=== PATIENT | male | born 1990 ===

== ENCOUNTER 2018-06-25 04:38 | Emergency (ER) | payer BC ==
[2018-06-25] MEDS ORDERED: Lidocaine 2% MPF* 2 ML VIAL ONE (05:13)
--- NOTE | 2018-06-25 05:14 | ED ---
Upper Extremity Pain - HPI Summary HPI Summary: This patient is a 27 year old M presenting to [facility] accompanied by a woman with a chief complaint of right hand injury with bleeding since just [employer]. The patient rates the pain 7/10 in severity. He states he was taking down a piece of gutter on his house and accidentally sliced his hand. - History of Current Complaint Chief Complaint: EDLacSutureRecheck Stated Complaint: CUT HAND OPEN- PER PT Time Seen by Provider: 06/25/18 05:08 Hx Obtained From: Patient Onset/Duration: Started Minutes Ago Severity Currently: Moderate - 7/10 Pain Location: Hand - right - Allergies/Home Medications Allergies/Adverse Reactions: Allergies Allergy/AdvReac Type Severity Reaction Status Date / Time No Known Allergies Allergy Verified 06/25/18 04:56 PMH/Surg Hx/FS Hx/Imm Hx Endocrine/Hematology History: Denies: Hx Diabetes, Hx Thyroid Disease Cardiovascular History: Denies: Hx Congestive Heart Failure, Hx Deep Vein Thrombosis, Hx Hypertension , Hx Myocardial Infarction, Hx Pacemaker/ICD Respiratory History: Reports: Hx Asthma - INFANT & YOUNG CHILD, NO MEDS SINCE 2004 Denies: Hx Chronic Obstructive Pulmonary Disease (COPD), Hx Lung Cancer, Hx Pneumonia, Hx Pulmonary Embolism GI History: Denies: Hx Gall Bladder Disease, Hx Gastrointestinal Bleed, Hx Ulcer, Hx Urosepsis History: Denies: Hx Kidney Stones, Hx Renal Disease Sensory History: Reports: Hx Contacts or Glasses - CONTACTS; WILL WEAR GLASSES DAY OF SURGERY Opthamlomology History: Reports: Hx Contacts or Glasses - CONTACTS; WILL WEAR GLASSES DAY OF SURGERY Neurological History: Denies: Hx Dementia, Hx Migraine, Hx Seizures, Hx Transient Ischemic Attacks (TIA) Psychiatric History: Denies: Hx Anxiety, Hx Depression, Hx Schizophrenia, Hx Bipolar Disorder - Surgical History Surgery Procedure, Year, and Place: Right hand surgery Hx Anesthesia Reactions: No Infectious Disease History: No Infectious Disease History: Denies: History Other Infectious Disease, Traveled Outside the [place] in Last 30 Days - Family History Known Family History: Negative: Renal Disease, Blood Disorder - Social History Alcohol Use: Occasionally Substance Use Type: Reports: None Smoking Status (MU): Never Smoked Tobacco Review of Systems Negative: Fever Positive: Myalgia - right hand All Other Systems Reviewed And Are Negative: Yes Physical Exam - Summary Physical Exam Summary: VITAL SIGNS: Reviewed. GENERAL: Patient is a well-developed and nourished male who is lying comfortable in the stretcher. Patient is not in any acute respiratory distress. HEAD AND FACE: No signs of trauma. No ecchymosis, hematomas or skull depressions. No sinus tenderness. EYES: PERRLA, EOMI x 2, No injected conjunctiva, no nystagmus. EARS: Hearing grossly intact. Ear canals and tympanic membranes are within normal limits. MOUTH: Oropharynx within normal limits. NECK: Supple, trachea is midline, no adenopathy, no JVD, no carotid bruit, no c- spine tenderness, neck with full ROM. CHEST: Symmetric, no tenderness at palpation LUNGS: Clear to auscultation bilaterally. No wheezing or crackles. CVS: Regular rate and rhythm, S1 and S2 present, no murmurs or gallops appreciated. ABDOMEN: Soft, non-tender. No signs of distention. No rebound no guarding, and no masses palpated. Bowel sounds are normal. EXTREMITIES: FROM in all major joints, no edema, no cyanosis or clubbing. 7cm laceration on the palm of the right hand. NEURO: Alert and oriented x 3. No acute neurological deficits. Speech is normal and follows commands. SKIN: Dry and warm Triage Information Reviewed: Yes Vital Signs On Initial Exam: Initial Vitals Temp Pulse Resp BP Pulse Ox 98.2 F 82 16 118/51 97 06/25/18 04:54 06/25/18 04:54 06/25/18 04:54 06/25/18 04:54 06/25/18 04:54 Vital Signs Reviewed: Yes Procedures - Laceration/Wound Repair 1 Location: upper extremity - right hand Anesthesia: 2.0%, Lido Length, Depth and Shape: 7cm Suture Type: Prolene - 2-0 Number of Sutures: 7 Diagnostics - Vital Signs Vital Signs Temp Pulse Resp BP Pulse Ox 06/25/18 04:54 98.2 F 82 16 118/51 97 - Laboratory Lab Statement: Any lab studies that have been ordered have been reviewed, and results considered in the medical decision making process. Course/Dx - Course Course Of Treatment: This patient is a 27 year old M presenting to [facility] accompanied by a woman with a chief complaint of right hand injury with bleeding since just [employer]. The patient rates the pain 7/10 in severity. He states he was taking down a piece of gutter on his house and accidentally sliced his hand. The laceration was repaired with 7 stitches, which should be removed in 10-14 days. In the ED course the patient was given Cephalexin, Ibuprofen, Oxycodone, and Tetan. Patient will be discharged with prescription for Cephalexin and Ibuprofen and follow up from Dr. Zhu. The patient is agreeable with this plan. - Diagnoses Provider Diagnoses: Laceration Discharge - Sign-Out/Discharge Documenting (check all that apply): Patient Departure - discharge Patient Received Moderate/Deep Sedation with Procedure: No - Discharge Plan Condition: Stable Disposition: HOME Prescriptions: Cephalexin CAP* [Keflex CAP*] 500 mg PO QID #30 cap Ibuprofen TAB* [Motrin TAB* 800 MG] 800 mg PO Q6H PRN #30 tab PRN Reason: Pain Patient Education Materials: Laceration (ED) Forms: *Work Release Referrals: Blair Zhu MD [Primary Care Provider] - 2 Days Additional Instructions: RETURN TO THE EMERGENCY DEPARTMENT FOR CHANGING OR WORSENING SYMPTOMS. FOLLOW UP WITH Dr. Zhu IN 1-2 DAYS, if needed. Remove stitches in 10-14 days. - Attestation Statements Document Initiated by Scribe: Yes Documenting Scribe: Basim Oleary Provider For Whom Scribe is Documenting (Include Credential): Latoya Velasquez MD Scribe Attestation: Basim Santana, scribed for Latoya Velasquez MD on 06/25/18 at 0619. Status of Scribe Document: Ready
[2018-06-25] MEDS ORDERED: oxyCODONE/Acetamin 5/325 MG* TAB PO ONE (05:31)
[2018-06-25] MEDS ORDERED: Cephalexin CAP* 500 MG PO ONE (05:31)
[2018-06-25] MEDS ORDERED: Tetan/Diph/Pertus SYR(Tdap)* 0.5 ML SYR(BOOSTRIX) use SYR IM ONE (05:31)
[2018-06-25] MEDS ORDERED: Ibuprofen TAB* 400 MG PO ONE (05:31)
[2018-06-25 06:00] VITALS: BP 119/64
== END 2018-06-25 06:00 | disposition home or self-care (01) ==
LOC: ED 04:38
DX: S61.411A Laceration without foreign body of right hand, initial encounter (principal); W45.8XXA Other foreign body or object entering through skin, initial encounter; Y93.89 Activity, other specified; Y92.009 Unspecified place in unspecified non-institutional (private) residence as the place of occurrence of the external cause
CPT/HCPCS: 12002; 90715; 99282; A9270-GY

== ENCOUNTER 2018-07-13 11:34 | Day surgery (SDC) | payer BC ==
[~2018-07-13 11:34] MED LIST: Buffered Lidocaine 1% SYRIN* 1 ML/SYRINGE INTRADERM ONE; Dexamethasone IV* 4 MG/ML 1 ML (4 MG) IV SLOW PU ONE; Dexamethasone IV* 4 MG/ML 1 ML (4 MG) ONE; Famotidine IV* 10 MG/ML 2 ML (20 mg) IV ONE; Famotidine IV* 10 MG/ML 2 ML (20 mg) ONE; Lactated Ringers 1000 ML Bag* 1,000 ML IV SCH
[2018-07-13] MEDS ORDERED: ceFAZolin 2 GM in NS PREMIX(*) 2 GM/100 ML BAG IVPB ONE (11:39)
[2018-07-13] MEDS ORDERED: Bupivacaine 0.25% SDV* 30 ML ONE (14:51)
[2018-07-13] MEDS ORDERED: Midazolam* 1 MG/ML 5 ML VIAL (5 MG) ONE (16:04)
[2018-07-13] MEDS ORDERED: Propofol* 10 MG/ML 20 ML BTL ONE (16:04)
[2018-07-13] MEDS ORDERED: fentaNYL* 50 MCG/ML 2 ML VIAL (100 MCG VIAL) ONE (16:04)
[2018-07-13] MEDS ORDERED: fentaNYL* 50 MCG/ML 2 ML VIAL (100 MCG VIAL) IV PRN (17:05)
[2018-07-13] MEDS ORDERED: Ondansetron INJ* 2 MG/ML VIAL IV PRN (17:05)
[2018-07-13] MEDS ORDERED: Naloxone* 0.4 MG/ML 1 ML VIAL IV PRN (17:05)
[2018-07-13] MEDS ORDERED: oxyCODONE/Acetamin 5/325 MG* TAB PO PRN (17:05)
[2018-07-13 17:48] VITALS: BP 134/79
[2018-07-13] MEDS ORDERED: oxyCODONE/Acetamin 5/325 MG* TAB ONE (17:58)
--- NOTE | 2018-07-14 01:06 | OP ---
DATE OF OPERATION: 07/13/18 - [facility] DATE OF : 89 SURGEON: Cody Kay MD. RETURNER: DIDIER Romo. An assistant professor of biology was needed for the procedure to aid in positioning of the arm and retraction. ANESTHESIOLOGIST: Dr. Silveira. ANESTHESIA: General. PRE-OP DIAGNOSIS: Right index finger radial digital nerve laceration. POST-OP DIAGNOSIS: Right index finger radial digital nerve injury in continuity over about 2 to 3 mm. OPERATIVE PROCEDURE: Repair of right index finger radial digital nerve with Axoguard Nerve Connector. INDICATIONS: Herberth is 27 years old. He had sheet metal lacerate the radial aspect of the palm. He has dry scaly skin on the radial aspect of his finger, and sparely diminished sensation on the radial aspect of the finger. The remainder of the hand was fine until that we had to explore the nerve and make sure that digital nerve was okay. ESTIMATED BLOOD LOSS: 2 mL. COMPLICATIONS: None. FINDINGS: See above and below. DESCRIPTION OF PROCEDURE: Herberth was seen in the preoperative holding area. The correct site, side and procedure were identified. We came back to the operating room where the arm was prepped and draped in the usual fashion and time-out was performed. The hand was placed in Lead Hand and his prior sutures had all been removed. We did have tourniquet up to 250 and I went ahead and reopened the prior incision bluntly. When I reopened the prior traumatic wound, I did encounter some Vicryl sutures and these were all removed. I extended this distally down over the MCP joint area of the index finger. Full-thickness flap was raised off the tendon. The radial digital nerve was identified distally where there was no scar tissue and then I traced the nerve proximally. When I got to the level of the midpalm where he had a strongly positive Tinel's, I noted that he had a 2 to 3 mm segment where the nerve was red and severely contused and clearly had sustained the nerve injury at that level, proximal to that the nerve looked fine. The digital artery was not lacerated. The tendon was not lacerated. I performed a full neurolysis circumferentially around the damaged area of the nerve. I elected not to excise that area and go for a primary repair instead. I thought that there was a chance that it could still be a connection block or if it is an axonotmetic injury that it could still heal, and so I went ahead and I placed an Axoguard Nerve Connector 4 mm x 15 mm connector that I split longitudinally around the area and then I sutured this with 8-[address]. After I had applied the nerve connector, I irrigated out the wound, I inspected the tendons, they were fine. I debrided the damaged skin edges back to nice clean skin edges throughout the 3 to 4 cm traumatic wound. The traumatic wound was closed with 4-0 nylon suture as was the surgical incision portion of the wound. No deep sutures were placed. The wound was dressed with Xeroform, 4x4s, sterile Webril and an Marino bandage. He was then taken to the recovery room in stable condition. [id number]/[facility] #: [id number] LUCINA
== END 2018-07-13 18:19 | disposition home or self-care (01) ==
LOC: OREAST 11:34
PROVIDERS: ATTEND Orthopaedic Surgery Hand Surgery
DX: S64.21XA Injury of radial nerve at wrist and hand level of right arm, initial encounter (principal); Z72.0 Tobacco use; W26.8XXA Contact with other sharp object(s), not elsewhere classified, initial encounter; Y93.89 Activity, other specified; Y92.9 Unspecified place or not applicable
CPT/HCPCS: A9270-GY; C1776; J0690; J1100; J2250; J2704; J3010